=== PATIENT | male | born 1985 | race Caucasian/White ===

== ENCOUNTER 2020-02-18 10:50 | Emergency (ER) | payer OTHER ==
[~2020-02-18] VITALS: Ht 185.4 cm; Wt 87.5 kg
[2020-02-18 10:52] VITALS: BP 132/90
--- NOTE | 2020-02-18 10:55 | NUR ---
Pt bib [place] [employer] for [employer]. Pt needs to get medically cleared. Allergies: NKA Med hx: Hep C
--- NOTE | 2020-02-18 12:06 | NUR ---
Dr. Bourgeois is evaluating the patient.
[2020-02-18 12:20] VITALS: BP 135/86
--- NOTE | 2020-02-18 12:20 | NUR ---
Patient discharged with v/s stable. Written and verbal after care instructions given and explained. Patient verbalized understanding. with Police in custody. All questions addressed prior to discharge.
== END 2020-02-18 12:20 ==
LOC: MED 10:50
DX: M25.511 Pain in right shoulder (principal); G89.29 Other chronic pain; R03.0 Elevated blood-pressure reading, without diagnosis of hypertension; F17.210 Nicotine dependence, cigarettes, uncomplicated; J45.909 Unspecified asthma, uncomplicated; F12.90 Cannabis use, unspecified, uncomplicated; Z86.19 Personal history of other infectious and parasitic diseases; Z02.89 Encounter for other administrative examinations
CPT/HCPCS: 99283

== ENCOUNTER 2023-09-30 14:53 | Emergency (ER) | payer OTHER ==
[~2023-09-30] VITALS: Ht 167.6 cm; Wt 72.6 kg
[2023-09-30 15:05] VITALS: BP 122/74; PULSE 89; RESP 18; TEMP 97; O2SAT 98
[2023-09-30] MEDS ORDERED: KETOROLAC 30 MG/ML VIAL IM ONE (15:05)
[2023-09-30] MEDS ORDERED: CEPH-588 PO (15:36)
[2023-09-30] MEDS ORDERED: SULF-58 PO (15:37)
[2023-09-30 15:50] VITALS: BP 122/74; PULSE 89; RESP 18; TEMP 97; O2SAT 98
== END 2023-09-30 15:50 | disposition home or self-care (01) ==
LOC: MED 14:53
DX: L03.012 Cellulitis of left finger (principal); L98.498 Non-pressure chronic ulcer of skin of other sites with other specified severity; Z79.899 Other long term (current) drug therapy
CPT/HCPCS: 73130; 90471; 90715; 96372; 99284; J1885